=== PATIENT | female | born 1955 | race Caucasian/White ===

== ENCOUNTER 2021-06-14 08:58 | Day surgery (SDC) | payer MEDICARE, OTHER ==
[~2021-06-14] VITALS: Ht 163 cm; Wt 64.0 kg
[~2021-06-14 08:58] MED LIST: ASCORBIC ACID500 MG PO; DEXAMETHAS0.5 MG/51 PO; LOPRESSOR25 MG PO; METAMUCIL1 DOSE PO; MINERAL OIL1 ML PO; PRAVACHOL20 MG PO; VITAMIN D325 MC4 PO; WAL-MUCIL0.52 GM PO
[2021-06-14] MEDS ORDERED: TRACE MINERAL PO (09:23)
[2021-06-14] MEDS ORDERED: [UNRECOGNIZED DRUG - OTHER] PO (09:24)
--- NOTE | 2021-06-14 10:33 | NUR ---
PT. HAD A RRTSR THIS DATE. SHE WILL D/C HOME WITH SPOUSE. AT THIS TIME SHE WILL HAVE NO NEEDS.
[2021-06-15 07:03] LABS: BASOPHIL 0.1 % (0-2); EOSINOPHIL 0.1 % (0-7); HCT 30.9 % (37.0-47.0); HGB 10.6 g/dl (12.5-16.0); LYMPHOCYTE 10.8 % (15-48); MCH 31.4 pg (25.0-31.0); MCHC 34.3 g/dL (32.0-36.0); MCV 91.4 fL (78.0-100.0); MPV 10.1 fL (6.0-9.5); NEUTROPHIL 78.4 % (41-80); NRBC 0; PLT 230 K/uL (150-400); RBC 3.38 M/uL (4.20-5.40); RDW 12.2 % (11.5-14.0); WBC 11.5 K/uL (4.0-10.5)
[2021-06-15 07:51] LABS: CREATININE 0.58 mg/dL (0.51-0.95); POTASSIUM 4.3 mmol/L (3.5-5.1)
[2021-06-15] MEDS ORDERED: FEOSOL325 MG PO (11:07)
[2021-06-15] MEDS ORDERED: CHILDREN'S ASPI81 MG PO (11:07)
== END 2021-06-15 12:40 | disposition home or self-care (01) ==
LOC: FAS 08:58 → FOFB 10:12 → FAS 11:15
PROVIDERS: Orthopaedic Surgery
DX: M19.011 Primary osteoarthritis, right shoulder (principal); E78.5 Hyperlipidemia, unspecified; Z86.79 Personal history of other diseases of the circulatory system; Z79.82 Long term (current) use of aspirin; Z88.5 Allergy status to narcotic agent; Z96.651 Presence of right artificial knee joint
CPT/HCPCS: 36415; 73020; 80048; 85025; 86850; 86900; 86901; 94010; 97162; 97166; 97530-GP; 97535; C1713; C1776; J0171; J0697; J1100; J1170; J1885; J2250; J2270; J2370; J2405; J2550; J2704; J2795; J7120